=== PATIENT | male | born 1980 | race Two or more races ===

== ENCOUNTER 2017-03-07 10:13 | Emergency (ER) | payer SELFPAY ==
[~2017-03-07] VITALS: Ht 167.6 cm; Wt 90.7 kg
[2017-03-07] MEDS ORDERED: NKM (10:20)
[2017-03-07 10:24] VITALS: BP 168/98
[2017-03-07 10:36] VITALS: BP 168/98
[2017-03-07] MEDS ORDERED: Tubing IV Secondary IV ONE (10:41)
[2017-03-07] MEDS ORDERED: Tubing Blood Filter IV ONE (10:41)
[2017-03-07] MEDS ORDERED: NS 275ml ONE (10:41)
--- NOTE | 2017-03-07 12:21 | Emergency Room Report ---
History of Present Illness General Chief Complaint: Laceration Source: Patient Present Illness HPI 36YOM BIB [facility] for medical clearance Patient allegedly injured nose getting into back of van/wan after arrest. Sherriff and patient disagree on mechanism of injury. Patient denies LOC, nausea/vomiting, neck pain Refuses to allow wound care Refuses to allow tetanus update Repeating "I'm good, doc." Denies other medical problems Allergies: Coded Allergies: No Known Allergies (Unverified , 03/07/17) Patient History Past Medical History: none Past Surgical History: none Pertinent Family History: none Social History: Denies: smoking, alcohol use, drug use Immunizations: UTD Reviewed Nursing Documentation: PMH: Agreed, PSxH: Agreed Nursing Documentation-PMH Past Medical History: No Stated History Review of Systems All Other Systems: negative except mentioned in HPI Physical Exam Vital Signs Date Time Temp Pulse Resp B/P (MAP) Pulse Ox O2 Delivery O2 Flow Rate FiO2 03/07/17 10:16 114 22 168/98 99 Room Air Sp02 EP Interpretation: reviewed, normal General Appearance: normal inspection, well appearing, no apparent distress, alert Head: other - dried blood streaks on both sides of nose. Unable to visualize if laceration or abrasion d/t patient non-compliance with physical exam ENT: normal ENT inspection, hearing grossly normal, normal voice Neck: normal inspection, full range of motion, supple, no bony tend Respiratory: normal inspection, lungs clear, normal breath sounds, no respiratory distress, no retraction, no wheezing Cardiovascular #1: regular rate, rhythm, no edema Gastrointestinal: normal inspection, normal bowel sounds, non tender, soft, no guarding, no hernia Genitourinary: no CVA tenderness Musculoskeletal: normal inspection, back normal, normal range of motion, Alexy' s Sign negative Neurologic: normal inspection, alert, oriented x3, responsive, 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 tested, motor strength/tone normal, speech normal Psychiatric: normal inspection, judgement/insight normal, mood/affect normal Lymphatic: normal inspection Medical Decision Making Diagnostic Impression: Primary Impression: Medical clearance for incarceration Additional Impression: Nose abrasion Qualified Codes: S00.31XA - Abrasion of nose, initial encounter ER Course Nose abrasion - unknown if underlying lac VSS Afebrile No complaints Patient uncooperative with full physical exam, wound care MEDICALLY CLEARED FOR BOOKING Last Vital Signs Date Time Temp Pulse Resp B/P (MAP) Pulse Ox O2 Delivery O2 Flow Rate FiO2 03/07/17 10:36 114 22 168/98 99 Room Air Status: improved Disposition: D/C TO LAW ENFORCEMENT IN [facility] Condition: Improved Referrals: NOT CHOSEN IPA/,REFERRING (PCP) Additional Instructions: MEDICALLY CLEARED FOR BOOKING Patient refused wound care, tetanus shot, pain control in the ED CHARISSE SILVA M.D. Mar 07, 2017 12:21
== END 2017-03-07 10:45 ==
LOC: EMR 10:40
DX: S00.31XA Abrasion of nose, initial encounter (principal); X58.XXXA Exposure to other specified factors, initial encounter; Y92.89 Other specified places as the place of occurrence of the external cause
CPT/HCPCS: 99283; J7050